=== PATIENT | female | born 1995 | race Caucasian/White ===

== ENCOUNTER 2017-09-05 20:12 | Emergency (ER) | payer MEDICAID, OTHER ==
[2017-09-05 20:20] VITALS: BP 104/76
--- NOTE | 2017-09-05 20:29 | ED Physician Documentation ---
PD HPI HEENT - Stated complaint Stated Complaint: TONGUE PX - Chief complaint Chief Complaint: Heent - History obtained from History obtained from: Patient - History of Present Illness Timing - onset: Today Similar symptoms before: Has not had sx before - Additional information Additional information: while at work tonight, patient felt mild discomfort towards the back of her tongue. She looked in the mirror and noticed "bumps" on the back of her tongue ( posteriorly) and became concerned this was an infection. Review of Systems Constitutional: denies: Fever, Chills, Sweats Throat: denies: Sore throat PD PAST MEDICAL HISTORY - Past Medical History Past Medical History: No - Past Surgical History Past Surgical History: No - Present Medications Home Medications: Ambulatory Orders Medication Instructions Recorded Confirmed Levonorgestrel [Kyleena] 09/05/17 - Allergies Allergies/Adverse Reactions: Allergies Allergy/AdvReac Type Severity Reaction Status Date / Time No Known Drug Allergies Allergy Verified 09/05/17 20:16 - Social History Does the pt smoke?: No Smoking Status: Never smoker Does the pt drink ETOH?: No Does the pt have substance abuse?: No - Immunizations Immunizations are current?: Yes PD ED PE NORMAL - Vitals Vital signs reviewed: Yes - General General: Alert and oriented X 3, No acute distress, Well developed/nourished - HEENT HEENT: Moist mucous membranes, Pharynx benign Results - Vitals Vitals: Vital Signs - 24 hr 09/05/17 20:14 Temperature 36.5 C Heart Rate 80 Respiratory 16 Rate Blood Pressure 104/76 O2 Saturation 100 Oxygen O2 Source Room air PD MEDICAL DECISION MAKING - ED course Complexity details: considered differential, d/w patient ED course: Despite HPI including c/o pain, she denies any pain or discomfort at time of my evaluation. 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 The area she is concerned about are the circumvallate papillae and she was reassured that this was a normal finding. Departure - Departure Disposition: 01 Home, Self Care Clinical Impression: Normal exam Condition: Good Instructions: ED Symptoms No Dx Comments: Your exam does not reveal any abnormalities at this time. If you develop new or worsening symptoms, see your primary care provider or return to the emergency department. Your exam does not suggest an infection at this time. Discharge Date/Time: 09/05/17 20:53
== END 2017-09-05 20:53 | disposition home or self-care (01) ==
LOC: ED 20:12
DX: Z71.1 Person with feared health complaint in whom no diagnosis is made (principal)
CPT/HCPCS: 99282

== ENCOUNTER 2018-02-13 15:16 | Emergency (ER) | payer SELFPAY ==
[2018-02-13 15:23] VITALS: BP 104/76
--- NOTE | 2018-02-13 15:32 | ED Physician Documentation ---
PD HPI HEENT - Stated complaint Stated Complaint: SWOLLEN TONSILS - Chief complaint Chief Complaint: Heent - History obtained from History obtained from: Patient - History of Present Illness Timing - onset: Other (About 4 days of right-sided tonsil pain and swelling with fatigue and fevers that are now gone. No other URI SX.) Review of Systems Constitutional: reports: Fever, Chills, Fatigue Ears: denies: Ear pain Nose: denies: Rhinorrhea / runny nose, Foreign Body Throat: reports: Sore throat PD PAST MEDICAL HISTORY - Past Medical History Past Medical History: No - Past Surgical History Past Surgical History: No - Present Medications Home Medications: Ambulatory Orders Medication Instructions Recorded Confirmed No Known Home Medications [No 02/13/18 02/13/18 Known Home Medications] - Allergies Allergies/Adverse Reactions: Allergies Allergy/AdvReac Type Severity Reaction Status Date / Time No Known Drug Allergies Allergy Verified 02/13/18 15:23 - Social History Does the pt smoke?: No Smoking Status: Never smoker Does the pt drink ETOH?: No Does the pt have substance abuse?: No - Immunizations Immunizations are current?: Yes PD ED PE NORMAL - Vitals Vital signs reviewed: Yes - General General: Alert and oriented X 3, No acute distress - HEENT HEENT: Other (The right tonsil is definitely large with some exudates, however it does not have the appearance of a peritonsillar abscess. There is no uvular deviation. She has very significant right-sided cervical adenopathy without posterior adenopathy.) - Neck Neck: Supple, no meningeal sign, No bony TTP - Neuro Neuro: Alert and oriented X 3, Normal speech Results - Vitals Vitals: Vital Signs - 24 hr 02/13/18 15:20 Temperature 36.9 C Heart Rate 97 Respiratory 18 Rate Blood Pressure 104/76 O2 Saturation 100 Oxygen O2 Source Room air - Labs Labs: Laboratory Tests 02/13/18 02/13/18 15:26 15:46 Infectious [place] Assay NEGATIVE Group A Strep Rapid Negative PD MEDICAL DECISION MAKING - Sepsis Event Vital Signs: Vital Signs - 24 hr 02/13/18 15:20 Temperature 36.9 C Heart Rate 97 Respiratory 18 Rate Blood Pressure 104/76 O2 Saturation 100 Oxygen O2 Source Room air Departure - Departure Disposition: 01 Home, Self Care Clinical Impression: Pharyngitis, acute Qualifiers: Pharyngitis/tonsillitis etiology: unspecified etiology Qualified Code(s): J02.9 - Acute pharyngitis, unspecified Condition: Good Record reviewed to determine appropriate education?: Yes Instructions: ED Pharyngitis Viral Report Pending Comments: Both your strep and mono tests are negative. Return if worsening. A throat culture is pending and we will call you within the next few days if it is positive.
== END 2018-02-13 16:18 | disposition home or self-care (01) ==
LOC: ED 15:16
DX: J02.9 Acute pharyngitis, unspecified (principal)
CPT/HCPCS: 36415; 86308; 87070; 87430; 99282; 99283